=== PATIENT | female | born 2005 | race Caucasian/White ===

== ENCOUNTER 2023-01-11 10:10 | Emergency (ER) | payer BC, MEDICAID, SELFPAY ==
[2023-01-11 10:14] VITALS: BP 142/92; PULSE 111; RESP 18; TEMP 36.8; O2SAT 99
[2023-01-11 10:21] VITALS: PULSE 102; RESP 16; O2SAT 99
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
--- NOTE | 2023-01-11 11:13 | PC.NURSE ---
pt stated she was in a safe place and denied recourses for senior living.
--- NOTE | 2023-01-16 14:10 | DCPLANNER ---
manager inspection called patient due to no primary care physician - no answer at this time.
== END 2023-01-11 11:14 | disposition home or self-care (01) ==
PROVIDERS: Emergency Provider Physician Assistant
DX: S05.12XA Contusion of eyeball and orbital tissues, left eye, initial encounter (principal); Y04.2XXA Assault by strike against or bumped into by another person, initial encounter
CPT/HCPCS: 70450; 70486; 99284

== ENCOUNTER 2023-03-15 15:40 | Emergency (ER) | payer BC, MEDICAID, SELFPAY ==
[2023-03-15 15:44] VITALS: BP 123/87; PULSE 83; RESP 14; TEMP 36.8; O2SAT 99
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
[2023-03-15 17:04] VITALS: PULSE 81; RESP 14; O2SAT 99
--- NOTE | 2023-03-17 08:33 | DCPLANNER ---
Addendum entered by Alma Mulligan 03/18/23 09:15: Patient had a follow up appointment scheduled with Dr. Pagan at ortho - patient did attend appointment. Original Note: manager wastewater had message to schedule a follow up appointment for patient with ortho. manager wastewater sent patients to the front office staff at ortho. Patients information will be printed and reviewed. Clinic will call patient with appointment information.
--- NOTE | 2023-03-17 11:35 | DCPLANNER ---
resolution manager called patient due to no primary care physician - patient declines at this time.
== END 2023-03-15 17:11 | disposition home or self-care (01) ==
PROVIDERS: Emergency Provider Physician Assistant
DX: S82.831A Other fracture of upper and lower end of right fibula, initial encounter for closed fracture (principal); W06.XXXA Fall from bed, initial encounter
CPT/HCPCS: 29515; 73610; 99283

== ENCOUNTER 2023-03-20 05:50 | Day surgery (SDC) | payer BC, MEDICAID, SELFPAY ==
[2023-03-19 13:56] VITALS: BMI 25.8
[2023-03-20] VITALS (10 sets, daily range): BP systolic 111–132; BP diastolic 65–76; PULSE 78–118; RESP 16; TEMP 36.3–36.5; O2SAT 95–100
--- NOTE | 2023-03-20 | XR_ITS ---
WS: [id number] XR ankle RT 2V [id number] REASON FOR EXAM: orif ankle FINDINGS: Plate and screw fixation of recent bleed demonstrated spiral fracture of the distal right fibula at t he level of the syndesmosis. Fracture fragments are in good position and alignment. Surgical appliances intact and in proper position and alignment. XR/XR ankle RT 2V [id number] IMPRESSION: Distal right fibular fracture with fixation as above.
[2023-03-20 06:09] LABS: OR HCG Qualitative Urine Negative (Negative)
[2023-03-20] MEDS: acetaminophen 1,000 MG/100 ML PIGGYBACK 400 MG IV (06:31)
[2023-03-20] MEDS: sodium chloride 0.9% 1,000 ML 30 ML IV (06:31)
[2023-03-20] MEDS: gabapentin 300 mg Capsule PO (06:36)
--- NOTE | 2023-03-20 06:36 | W.PM.OPSUD ---
Surgery/Procedure H&P Update DATE OF PROCEDURE: March 20, 2023 DATE H&P PERFORMED: 03/17/23 CHANGES TO PREVIOUS DOCUMENTATION: No changes PLANNED PROCEDURE: Operation Date: 03/20/23 07:00 Proposed Procedures p Right ankle fibular ORIF CPT 61008, S82.401A(Right) - Juanjo Pagan DPM
[2023-03-20] MEDS: ceFAZolin 2,000 MG in sodium chloride 0.9% (plus) 50 ML 100 MG IV (07:13)
--- NOTE | 2023-03-20 11:35 | ANES.PREANE2 ---
Pre-Anesthetic Assessment Height/Weight: Height 1.68 m Weight 72.575 kg Temp Pulse Resp BP Pulse Ox O2 Del Method 97.4 F L 83 16 119/76 96 Room Air 03/20/23 09:07 03/20/23 09:25 03/20/23 09:25 03/20/23 09:25 03/20/23 09:25 03/20/23 09:25 Operation Date: 03/20/23 07:00 Proposed Procedures p Right ankle fibular ORIF CPT 62203, S82.401A(Right) - Juanjo Pagan DPM Familial anesthetic complications: none Was Beta Ghazala taken within 24 hours: N/A Was Clonidine taken within 24 hours: N/A Last intake: Intake Last Liquid Date 03/19/23 Last Liquid Time 00:00 Last Solid Date 03/19/23 Last Solid Time 21:30 Social No alcohol and No tobacco Exam alert, oriented x 3, clear to auscultation bilaterally and regular rate & rhythm Airway Submandibular: within normal limits Cervical ROM: within normal limits Mallampati: Class II Dentition: full History/ROS No significant history except as noted Anesthetic Plan ASA status: 1 Anesthesia: General and Regional (specify below) (Right Pop blk) Medications/Allergies Home Medications Medication Instructions Recorded Confirmed Last Taken Type ibuprofen 800 mg tablet 800 mg PO Q8H PRN pain #20 tabs 03/15/23 03/19/23 03/16/23 Rx hydrocodone 5 mg-acetaminophen 325 1 tab PO Q6H PRN pain 7 days #28 03/20/23 Unknown Rx mg tablet tabs ibuprofen 800 mg tablet 800 mg PO Q6H PRN pain #28 tabs 03/20/23 Unknown Rx Allergies Allergy/AdvReac Type Severity Reaction Status Date / Time No Known Allergies Allergy Verified 03/17/23 14:22 PFSH Anesthesia Medical History No pertinent family history Psychiatric care Surgical History No pertinent past surgical history Female Reproductive History Date of last menstrual period: 03/09/23 Data Anesthesia Cardiac Studies: No Data to Display
--- NOTE | 2023-03-20 11:36 | ANES.PROC ---
Anesthesia Procedures Procedure/Date: 03/20/23 Nerve Block ^: Nerve Block 1: Main Anesthesia: general anesthesia Time Out Performed: Yes Consent: requested by attending/covering physician, from patient, risks and benefits reviewed and patient agrees to proceed Nerve block location: popliteal (right) Anesthesia monitors applied: pulse oximetry, EKG, BP cuff and oxygen Nerve block position: supine Anesthetic Used: ropivicaine 0.5% Amount of anesthesia used (mL): 30 Ultrasound used to: recognize landmarks Nerve Stimulator Used?: Yes Interscalene/Femoral BLK: 4 stimuplex 21 g needle used for position and inplane approach Injection: neg aspiration of heme Patient Tolerated Procedure: well Complications: none
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
--- NOTE | 2023-03-20 15:39 | ANE.PACU2 ---
Inpatient post-anesthesia follow up: Airway intact: Yes Vital signs: Temperature 97.4 F Pulse Rate 83 Respiratory Rate 16 Blood Pressure 119/76 Pulse Oximetry 96 Oxygen Delivery Me thod Room Air Oxygen Flow Rate Fraction of Inspir ed Oxygen Hydration adequate: Yes Nausea and vomiting: No Pain level: 1 Mental status: Baseline
== END 2023-03-20 09:36 | disposition home or self-care (01) ==
PROVIDERS: Anesthesiology; Visit Provider Podiatrist Foot & Ankle Surgery
PROC: (CPT 27792; principal; 2023-03-20 07:00)
DX: S82.831A Other fracture of upper and lower end of right fibula, initial encounter for closed fracture (principal); W19.XXXA Unspecified fall, initial encounter
CPT/HCPCS: 27792; 73600; 76000; 81025; 84703; C1713; J0131; J0690; J1100; J1200; J1885; J2250; J2405; J2704; J2795; J3010; J3490; J7030

== ENCOUNTER → 2023-04-02 14:53 | Outpatient (BNVA) | payer BC, MEDICAID, SELFPAY | PROVIDERS: Visit Provider Podiatrist Foot & Ankle Surgery | DX: M25.571 Pain in right ankle and joints of right foot (principal); Z98.890 Other specified postprocedural states | CPT/HCPCS: 73610 ==

== ENCOUNTER → 2023-04-16 14:53 | Outpatient (BNVA) | payer BC, SELFPAY | PROVIDERS: Visit Provider Podiatrist Foot & Ankle Surgery | DX: M25.571 Pain in right ankle and joints of right foot (principal); Z98.890 Other specified postprocedural states | CPT/HCPCS: 73610 ==

== ENCOUNTER 2023-04-16 16:05 | Outpatient (CLI) | payer BC, SELFPAY | END 2023-04-16 16:06 | disposition home or self-care (01) | LOC: SPT 16:06 | PROVIDERS: Visit Provider Podiatrist Foot & Ankle Surgery | DX: Z46.89 Encounter for fitting and adjustment of other specified devices (principal); S82.891D Other fracture of right lower leg, subsequent encounter for closed fracture with routine healing; X58.XXXD Exposure to other specified factors, subsequent encounter; Z98.890 Other specified postprocedural states | CPT/HCPCS: 97760; L4361 ==

== ENCOUNTER → 2023-04-30 14:34 | Outpatient (BNVA) | payer BC, MEDICAID, SELFPAY | PROVIDERS: Visit Provider Podiatrist Foot & Ankle Surgery | DX: S82.891A Other fracture of right lower leg, initial encounter for closed fracture (principal); Z98.890 Other specified postprocedural states; X58.XXXA Exposure to other specified factors, initial encounter | CPT/HCPCS: 73610 ==

== ENCOUNTER 2023-04-30 15:50 | Outpatient (CLI) | payer BC, MEDICAID, SELFPAY | END 2023-04-30 15:51 | disposition home or self-care (01) | LOC: SPT 15:50 | PROVIDERS: Visit Provider Podiatrist Foot & Ankle Surgery | DX: Z46.89 Encounter for fitting and adjustment of other specified devices (principal); S82.891D Other fracture of right lower leg, subsequent encounter for closed fracture with routine healing; X58.XXXD Exposure to other specified factors, subsequent encounter | CPT/HCPCS: 97760; L1902 ==

== ENCOUNTER → 2024-12-30 09:06 | Outpatient (BNVA) | payer BC, SELFPAY | PROVIDERS: Visit Provider Nurse Practitioner Women's Health | DX: N92.6 Irregular menstruation, unspecified (principal) | CPT/HCPCS: 81025 ==

== ENCOUNTER → 2025-01-13 10:07 | Outpatient (BNVA) | payer BC, SELFPAY | PROVIDERS: Visit Provider Nurse Practitioner Women's Health | DX: N92.1 Excessive and frequent menstruation with irregular cycle (principal) | CPT/HCPCS: 76856 ==